=== PATIENT | female | born 1935 | race Caucasian/White ===

== ENCOUNTER → 2017-04-22 | Outpatient (CLI) | payer OTHER ==
[~2017-04-22] MED LIST: ALPR0.25 PO; DOXY100T10 PO; METO25TA35 PO; MV-M1TAB16 PO; OMEP-110 PO; OMEP20CA9 PO; SUCR1ORA5 PO; SUCR1TAB33 PO; TELM20TA PO; VERA120C4 PO; VERA120T5 PO
== END | disposition home or self-care (01) ==
LOC: CFH 15:48
PROVIDERS: ATTEND Internal Medicine Interventional Cardiology
DX: I08.3 Combined rheumatic disorders of mitral, aortic and tricuspid valves (principal); I11.9 Hypertensive heart disease without heart failure; M34.9 Systemic sclerosis, unspecified; Z86.73 Personal history of transient ischemic attack (TIA), and cerebral infarction without residual deficits; Z95.0 Presence of cardiac pacemaker
CPT/HCPCS: 93306